=== PATIENT | male | born 1965 | race Caucasian/White ===

== ENCOUNTER 2019-08-22 21:50 | Emergency (ER) | payer OTHER ==
[2019-08-22 22:22] VITALS: BP 184/82
[2019-08-22] MEDS ORDERED: METHOCARBAMOL 750 MG TABLET PO ONE (23:03)
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
== END 2019-08-22 23:07 | disposition home or self-care (01) ==
LOC: EDBD → ER 21:50
DX: M54.5 Low back pain (principal); V87.7XXA Person injured in collision between other specified motor vehicles (traffic), initial encounter
CPT/HCPCS: 99283; J3490